=== PATIENT | female | born 1950 | race Caucasian/White ===

== ENCOUNTER 2021-03-21 16:06 | Outpatient (REF) | payer MEDICARE, OTHER, SELFPAY ==
[2021-03-23 15:22] LABS: COVID-19 RT-PCR UVMMC Result Negative (Negative)
== END 2021-03-21 16:07 | disposition home or self-care (01) ==
LOC: LBN 16:06
PROVIDERS: Visit Provider Physician Assistant Medical
DX: Z20.822 Contact with and (suspected) exposure to COVID-19 (principal); R50.9 Fever, unspecified
CPT/HCPCS: U0003; U0005

== ENCOUNTER 2024-06-21 13:01 | Inpatient (IN) | payer MEDICARE, BC, SELFPAY ==
[2024-06-21] VITALS (80 sets, daily range): BP systolic 104–171; BP diastolic 65–117; PULSE 70–139; RESP 10–26; TEMP 36.5–36.8; O2SAT 94–100
--- NOTE | 2024-06-21 13:00 | RT.EKG_ITS ---
APPROVED REPORT Exam: Resting ECG Reason for Exam: PALPITATIONS Patient Location: E HR:138 bpm ECG Measurements Heart Rate 138 AXIS MD 123 P 0 QRSd 77 QRS 27 QT 309 T 93 QTc 468 Conclusion Sinus tachycardia...rate> 99 Repolarization abnormality, prob rate related...ST dep, T neg, tachycardia ?aflutter
--- NOTE | 2024-06-21 13:30 | ED.GENADUL_ITS ---
Discharge Plan Disposition Patient Disposition: Admit to [facility] Condition: Stable Discharge Details Clinical Impression: Atrial fibrillation with RVR Primary Care Provider: Marleen,Local ED Provider: Del Jones Home Meds and New Rx's Prescriptions: No Action potassium citrate 10 mEq (1,080 mg) tablet extended release 10 meq PO BID ezetimibe 10 mg tablet 10 mg PO DAILY clopidogrel 75 mg tablet 75 mg PO DAILY lisinopril 5 mg tablet 5 mg PO DAILY chlorthalidone 25 mg tablet 25 mg PO DAILY rabeprazole 20 mg tablet,delayed release (DR/EC) 20 mg PO DAILY budesonide 3 mg capsule,delayed,extend.release 3 mg PO DAILY red yeast rice 600 mg tablet 600 mg PO BID Rx Instructions: give with meal/snack tumeric with chemo 2,400 mg PO BID calcium 167 mg capsule 167 mg PO DAILY multivitamin Tablet 1 tab PO DAILY aspirin 81 mg capsule 81 mg PO DAILY HPI General Date/Time Provider Initiated Documentation: 06/21/24 13:14 . Limitations to Documentation: no limitations . Information obtained by: patient . History of Present Illness 73 year old F presents to the emergency department with the chief complaint of elevated heart rate, described as moderate, Patient reports no radiation. Patient started experiencing this day(s) (2) and it has been intermittent. No relieving factors improve symptom(s), No exacerbating factors reported . Patient notes shortness of breath; denies chest pain, fever/chills and syncope. Patient did receive the following treatments prior to arrival, none Related Data Home Medications ?Medication ?Instructions ?Recorded ?Confirmed aspirin 81 mg capsule 81 mg PO DAILY 06/21/24 06/21/24 budesonide 3 mg 3 mg PO DAILY 06/21/24 06/21/24 capsule,delayed,extended release calcium 167 mg capsule 167 mg PO DAILY 06/21/24 06/21/24 chlorthalidone 25 mg tablet 25 mg PO DAILY 06/21/24 06/21/24 clopidogrel 75 mg tablet 75 mg PO DAILY 06/21/24 06/21/24 ezetimibe 10 mg tablet 10 mg PO DAILY 06/21/24 06/21/24 lisinopril 5 mg tablet 5 mg PO DAILY 06/21/24 06/21/24 multivitamin 1 tab PO DAILY 06/21/24 06/21/24 potassium citrate 10 mEq (1,080 10 meq PO BID 06/21/24 06/21/24 mg) tablet,extended release rabeprazole 20 mg tablet,delayed 20 mg PO DAILY 06/21/24 06/21/24 release red yeast rice 600 mg tablet 600 mg PO BID 06/21/24 06/21/24 tumeric with chemo 2,400 mg PO BID 06/21/24 06/21/24 Allergies Allergy/AdvReac Type Severity Reaction Status Date / Time levofloxacin (From Levaquin) Allergy Severe rash Verified 06/21/24 13:19 metoprolol (From Lopressor) Allergy Severe low pul Verified 06/21/24 13:19 rosuvastatin (From Crestor) Allergy Severe burn Verified 06/21/24 13:19 [id number] Reductase Allergy Severe red skin Verified 06/21/24 13:19 Inhibitor Sulfa (Sulfonamide Allergy Severe Unknown Verified 06/21/24 13:19 Antibiotics) General Stated Complaint: Arrhythmia KARI: 2 Review of Systems All systems reviewed & are unremarkable except as noted in HPI and below Constitutional Constitutional: Denies chills, Denies fever(s) and Denies weakness Cardiovascular Cardiovascular: Denies chest pain and Reports rapid heart rate Respiratory Respiratory: Denies cough Gastrointestinal Gastrointestinal: Denies abdominal pain, Denies nausea and Denies vomiting Musculoskeletal Musculoskeletal: Denies joint swelling Neurologic Neurologic: Denies weakness Psychiatric Psychiatric: Denies depression Exam Const General: no acute distress Orientation: alert HENMA Head: normal to inspection Ears: external ears normal General nose exam: external nose normal Mouth: moist mucous membranes Eyes General: appearance normal, both eyes and all related structures Neck Neck: normal visual inspection Resp Effort & Inspection: normal respiratory effort and able to speak in complete sentences Auscultation: clear to auscultation bilaterally Cardio Jugular venous pressure: no JVD Rate: tachycardic GI Palpation: soft and nontender Skin General skin exam: no rashes or lesions noted Neuro General: patient alert and patient oriented x3 Extrem General: normal to inspection Psych Mental Status: mental status grossly normal Course Vital Signs Vital signs: Vital Signs Temperature 36.5 C 06/21/24 13:10 Pulse 139 H 06/21/24 13:10 Respiratory Rate 20 06/21/24 13:10 Blood Pressure 148/101 H 06/21/24 13:10 Pulse Oximetry 98 06/21/24 13:10 Temperature 36.5 C 06/21/24 13:10 Temperature Source Oral 06/21/24 13:10 Pulse 139 H 06/21/24 13:10 Respiratory Rate 20 06/21/24 13:10 Respiratory Effort Non-Labored 06/21/24 13:12 Blood Pressure 148/101 H 06/21/24 13:10 Pulse Oximetry 98 06/21/24 13:10 Pain Level 0 06/21/24 13:10 Medical Decision Making 73-year-old female who is visiting here from [place] and has a history of coronary artery disease with 3 stents in the past, atrial fibrillation but normally is in it frequently per patient, who comes in with palpitations for 2 days with today has had persistently elevated heart rates. She denies any chest pain or pressure, she is notes that she has mild dyspnea with exertion but no vomiting, no fevers, no chills. She is noted to be tachycardic in the high 130s on arrival, she is clear lungs speaking in full sentences, mild pitting edema of the lower extremities no calf tenderness. Suspect that she is in a flutter with 2 1 conduction, will check a CBC, CMP, troponin, D-dimer and also administer IV diltiazem and keep on telemetry monitoring. Patient's heart rate in the 80s and 90s after IV Dilt, hemodynamically stable, says she feels much better. Will trial oral controlled release dose to see if this is able to control her heart rate. She is found to be in a flutter/fib, labs show magnesium of 1.2, IV repletion ordered. D-dimer 830 which is less than 1000 so per years protocol can be excluded from PE this way. She has a creainine of 1.5 with gfr 36 which she says she has stage 3 ckd so is [facility]. Will check delta troponins and if her heart rate remains stable will consider discharge. patient's hr again jumped up the 120's-130's, I ordered 10mg IV bolus and will initiate a drip. Will discuss with hospitalist about admission Differential Diagnosis Differential Diagnosis: A-fib/flutter, anemia, electrolyte abnormality, NSTEMI Lab Data Lab results reviewed: Yes I reviewed the patient's lab results. ECG Data Attestation: I personally reviewed and interpreted this ECG (s) as follows: Prior ECG tracings: available for review Interpretation: Suspect a flutter with 2 1 conduction, QTc 468, no STEMI aflutter rate of 94, qtc 475 no stemi Quality:SDOH Health Related Social Needs: No Data to Display Critical Care Time Critical Care Time Critical Care Time: Yes Total Critical Care Time: 45 (minutes) Attestation: time spent on frequent reassessments, hemodynamic monitoring, lab review in a patient with A-fib with RVR requiring IV diltiazem and potential to deteriorate at any time. PFSH All Active Problems (Updated 06/21/24 @ 15:48 by Del Jones MD) Atrial fibrillation with RVR (Acute) Social History Smoking/Tobacco Use Status: Never Smoking risk assessment performed?: Yes Alcohol Intake: never Substance use type: does not use Housing: house Do you feel safe at home: Yes Do you feel safe in your relationship?: Yes
[2024-06-21 13:45] LABS: BE (Venous) 0 mmol/L (-2-3); HCO3 (Venous) 25 mmol/L (23-28); O2 Sat (Venous) 58 %; TCO2 (Venous) 23 mmol/L (24-29); pCO2 (Venous) 43 mmHg (41-51); pH (Venous) 7.39 (7.31-7.41); pO2 (Venous) 31 mmHg
--- NOTE | 2024-06-21 13:46 | DI.RAD_ITS ---
Exam(s) XR PORTABLE CHEST AP EXAM: XR PORTABLE CHEST AP CLINICAL HISTORY: dyspnea TECHNIQUE: 2D digital imaging was performed. COMPARISON: No exams were available for comparison FINDINGS: LUNGS: Clear. No pleural abnormality seen. HEART: Normal size. AORTA: Normal diameter. BONES: Unremarkable for age. Soft tissues: Unremarkable. IMPRESSION: No acute findings. DATA REPOSITORY: RADIATION DOSE DELIVERED:
[2024-06-21] MEDS: Acetaminophen 500 MG TAB 1000 MG PO (13:55)
[2024-06-21] MEDS: dilTIAZem 25 MG/5 ML VIAL 20 MG IVP (13:55)
[2024-06-21] MEDS: Normal Saline 1,000 ML 1000 ML IV (13:58)
--- NOTE | 2024-06-21 14:00 | RT.EKG_ITS ---
APPROVED REPORT Exam: Resting ECG Reason for Exam: afib Patient Location: E HR:94 bpm ECG Measurements Heart Rate 94 AXIS [place] [id number] P [id number] QRSd 79 QRS 21 QT 378 T 59 QTc 475 Conclusion Atrial flutter with predominant 3:1 AV block...A-rate 283, multiple Ps Ventricular premature complex...V complex w/ short R-R interval
[2024-06-21 14:01] LABS: INR 1.1 (0.9-1.1); PTT Activated 27.4 sec (23.6-32.8)
[2024-06-21 14:17] LABS: D-Dimer 820 ng/mlFEU (<500)
[2024-06-21 14:26] LABS: ALT 31 U/L (14-59); AST 25 U/L (15-37); Alkaline Phosphatase 78 U/L (46-116); Anion Gap 10.8 mmol/L (3-11); BUN 35 mg/dL (7-18); Bilirubin, Total 0.78 mg/dL (0.2-1.0); CO2 26.2 mmol/L (21.0-32.0); CREATININE 1.5 mg/dL (0.55-1.02); Calcium 9.5 mg/dL (8.5-10.1); Chloride 99 mmol/L (98-107); Estimated GFR 36.57 (mL/min/1.73m2); Glucose 93 mg/dL (74-106); Magnesium 1.2 mg/dL (1.8-2.4); NT-proBNP 1868 pg/mL (<300); Potassium 3.8 mmol/L (3.5-5.1); Sodium 136 mmol/L (136-145); TSH (W/Ref FT4) 0.87 uIU/mL (0.36-3.74); Total Protein 8.3 g/dL (6.4-8.2); Troponin I 26 ng/L (<or=51)
[2024-06-21] MEDS: MAGNESIUM SULFATE 2 GM/50 ML BAG IVINF ×2 (15:10→19:56)
[2024-06-21] MEDS: dilTIAZem CD 180 MG CAPCR PO (15:19)
[2024-06-21 15:22] LABS: Troponin I 25 ng/L (<or=51)
[2024-06-21] MEDS: dilTIAZem 25 MG/5 ML VIAL 10 MG IVP (15:34)
[2024-06-21] MEDS: dilTIAZem 125 MG in Normal Saline 100 ML IV (16:31)
[2024-06-21 16:46] LABS: Troponin I 27 ng/L (<or=51)
--- NOTE | 2024-06-21 17:06 | W.PC.ACHO ---
Registration Status: Primary Language: Preferred Language: ED Information & Data Chief Complaint Arrhythmia 06/21/24 13:33 Triage Note pt arrives c/o palpitations 06/21/24 13:10 and an elevated heart rate via her fit bit intermittently since Friday. Pt denies shortness of breath and nausea. Pt does have a history of Afib since 2017 with an ablation Most Recent Vital Signs Temperature 36.5 C 06/21/24 13:10 Temperature Source Oral 06/21/24 13:10 Pulse 124 H 06/21/24 16:16 Pulse 138 H 06/21/24 16:35 Respiratory Rate 14 06/21/24 16:20 Respiratory Effort Non-Labored 06/21/24 13:12 Blood Pressure 151/100 H 06/21/24 16:16 Blood Pressure Mean 118 06/21/24 16:16 Pulse Oximetry 99 06/21/24 16:20 Pain Level 4 06/21/24 13:55 Allergies levofloxacin (From Levaquin) Allergy (Severe, Verified 06/21/24 13:19) rash metoprolol (From Lopressor) Allergy (Severe, Verified 06/21/24 13:19) low pul low pulse and low bp rosuvastatin (From Crestor) Allergy (Severe, Verified 06/21/24 13:19) burn skin burn [id number] Reductase Inhibitor Allergy (Severe, Verified 06/21/24 13:19) red skin Sulfa (Sulfonamide Antibiotics) Allergy (Severe, Verified 06/21/24 13:19) Unknown Precautions Isolation Standard precaution 06/21/24 13:12 Active Medications Generic Name Dose Route Start Last Admin Trade Name Brady PRN Reason Stop Dose Admin Diltiazem HCl 125 mg/ Sodium 125 mls @ 5 mls/hr 06/21/24 16:00 06/21/24 16:31 Chloride IV 5 mg/hr INFUSION BARTOLO 5 mls/hr Administration Protocol 5 MG/HR IV IV Catheter Type [Right Wrist] Saline Lock IV Catheter Gauge [Right Wrist 20 ] Diet Orders Category Date Time Status Heart Healthy Eating [DIET] Nutrition 06/21/24 Dinner Active Diagnostics 06/21/24 06/21/24 06/21/24 Range/Units 16:15 14:40 13:37 PT 11.0 (9.1-11.1) sec INR 1.1 (0.9-1.1) APTT 27.4 (23.6-32.8) sec D-Dimer 820 H (<500) ng/mlFEU VBG pH 7.39 (7.31-7.41) VBG pCO2 43 (41-51) mmHg VBG pO2 31 mmHg VBG HCO3 25 (23-28) mmol/L VBG Total CO2 23 L (24-29) mmol/L VBG O2 Saturation 58 % VBG Base Excess 0 (-2-3) mmol/L Sodium 136 (136-145) mmol/L Potassium 3.8 (3.5-5.1) mmol/L Chloride 99 (98-107) mmol/L Carbon Dioxide 26.2 (21.0-32.0) mmol/L Anion Gap 10.8 (3-11) mmol/L BUN 35 H (7-18) mg/dL Creatinine 1.5 H (0.55-1.02) mg/dL Est GFR (CKD-EPI 2020) 36.57 (mL/min/1.73m2) Glucose 93 (74-106) mg/dL Calcium 9.5 (8.5-10.1) mg/dL Magnesium 1.2 L (1.8-2.4) mg/dL Total Bilirubin 0.78 (0.2-1.0) mg/dL AST 25 (15-37) U/L ALT 31 (14-59) U/L Alkaline Phosphatase 78 (46-116) U/L Troponin I 27 25 26 (<or=51) ng/L NT-Pro-B Natriuret Pep 1868 H (<300) pg/mL Total Protein 8.3 H (6.4-8.2) g/dL Albumin 4.0 (3.4-5.0) g/dL TSH 0.87 06/21/ Range/Units 13:30 PT (9.1-11.1) sec INR (0.9-1.1) APTT (23.6-32.8) sec D-Dimer (<500) ng/mlFEU VBG pH (7.31-7.41) VBG pCO2 (41-51) mmHg VBG pO2 mmHg VBG HCO3 (23-28) mmol/L VBG Total CO2 (24-29) mmol/L VBG O2 Saturation % VBG Base Excess (-2-3) mmol/L Sodium (136-145) mmol/L Potassium (3.5-5.1) mmol/L Chloride (98-107) mmol/L Carbon Dioxide (21.0-32.0) mmol/L Anion Gap (3-11) mmol/L BUN (7-18) mg/dL Creatinine (0.55-1.02) mg/dL Est GFR (CKD-EPI 2020) (mL/min/1.73m2) Glucose (74-106) mg/dL Calcium (8.5-10.1) mg/dL Magnesium (1.8-2.4) mg/dL Total Bilirubin (0.2-1.0) mg/dL AST (15-37) U/L ALT (14-59) U/L Alkaline Phosphatase (46-116) U/L Troponin I (<or=51) ng/L NT-Pro-B Natriuret Pep (<300) pg/mL Total Protein (6.4-8.2) g/dL Albumin (3.4-5.0) g/dL TSH Cancelled Intake and Output - 24 Hour Total 06/21/24 13:01 thru 06/21/24 16:59 Intake Total 1050 Balance 1050 Weight 95.254 kg Intake: IV 1050 Falls Risk Assessment History of Falls No History 06/21/24 13:12 Contributing Factors No Factors,Medications 06/21/24 13:12 Ambulatory Aids Independent 06/21/24 13:12 Tubes/Lines None 06/21/24 13:12 Gait Evaluation No gait disturbance 06/21/24 13:12 Cognition No cognitive impairment 06/21/24 13:12 Fall Total Score 3 06/21/24 13:12 Level of Risk Standard/Low Risk 06/21/24 13:12 v v v v v v v v v Sending and/or Receiving Nurses: Please use comment section below to note any information pertinent to the patient hand-off not included above. Information / Comments: Report received from: Milena
--- NOTE | 2024-06-21 17:37 | W.PM.HP.N ---
Date of service: 06/21/24 Time of Service: 17:37 Assessment and Plan Assessment and plan (1) Atrial fibrillation with RVR: Status: Acute Assessment and plan: Atrial fibrillation vs flutter. She is on diltiazem drip and is stable, monitoring in the ICU Unclear trigger. No ACS, TSH okay. Mg could have contributed. PE unlikely per Luca. D-dimer borderline depending on which risk calculator is used, no CTA indicated per ED clinician. Since we are anticoagulating anyways I feel comfortable with this. I'd like to try to transition her to oral beta lio therapy, which is preferred to CCB with her CAD, also lower bleeding risk in combination with DOAC. She had a dramatic response to metoprolol in the past, so we could try very dose carvedilol under monitoring. Her [id number] score is 3. I recommended apixaban along with rate control. Plan to control rate, discharge to follow up with cardiology at home to discuss rhythm control options (2) Coronary artery disease: Status: Chronic Assessment and plan: Statin intolerant, on red yeast rice and ezetimibe as well as DAPT. She is well over a year out, with DOAC will stop one platelet agent. There is evidence clopidogrel/apixaban combination is lower risk than ASA/apixaban, so will go with this. (3) CKD stage 3b, GFR 30-44 ml/min: Assessment and plan: this is baseline per patient. Follow. (4) Hypomagnesemia: Status: Acute Assessment and plan: Given 2 grams, will give 2 more and follow in am. (5) Discharge planning issues: Status: Acute Assessment and plan: Home when on oral medications with reasonable rate control. she is full code. History of Present Illness History of Present Illness Chief Complaint: elevated heart rate Narrative: 73 yo F with history of CAD s/p PCI/AWA x 3 most recently in 2019 and pAFIB who presented after noting her heart rate was increasining elevated on her fitbit monitor over the past 2 days. She is visiting her daughter and grandchildren from [facility] and yesterday noted her heart rate was persistently in the 120s. It seemed to be going up and up, to the 160s. She has felt a little tired but she also has been chasing her grandkids. She has not had any chest pain or dizziness or significant palpitations like she has had in the past. She called her airplane mechanic apprentice and they told her to go to the ED. She hasn't had any changes to her health lately, no recently colds or other infections or significant stressors. She does not drink alcohol and last had caffeine in the form of tea several days ago. Her grandkids have had colds and she has been taking vitamin C/zinc/elderberry for the past few days to boost her immune system. Her last stent was in 2019, and her first LA was in 2003. She had an ablation for her atrial fibrillation in 2017. Review of Systems All systems reviewed & are unremarkable except as noted in HPI and below Gastrointestinal Gastrointestinal: Denies melena and Denies hematochezia Comments: no h/o GI bleed Musculoskeletal Musculoskeletal: Reports numbness (mild chronic left leg) Neurologic Neurologic: Reports localized weakness (mild chronic left leg) and Reports numbness (mild chronic left leg) PFSH All Active Problems (Updated 06/21/24 @ 18:45 by Jagdish Shirley) Hypomagnesemia (Acute) Discharge planning issues (Acute) Coronary artery disease (Chronic) Atrial fibrillation with RVR (Acute) Medical History (Updated 06/21/24 @ 18:45 by Jagdish Shirley) CKD stage 3b, GFR 30-44 ml/min Paroxysmal atrial fibrillation Surgical History (Updated 06/21/24 @ 18:11 by Jagdish Shirley) S/P ablation of atrial fibrillation S/P spinal surgery cyst removal with residual mild left leg weakness/numbness Hx of heart artery stent x 3, last in 2019 Family History (Updated 06/21/24 @ 18:12 by Jagdish Shirley) Father Heart disease Brother Heart disease 3 brothers with CABG Social History (Updated 06/21/24 @ 18:13 by Jagdish Shirley) Smoking/Tobacco Use Status: Never Smoking risk assessment performed?: Yes Alcohol Intake: never Substance use type: does not use Housing: house Do you feel safe at home: Yes Do you feel safe in your relationship?: Yes Additional Social history: Lives in [place] with John. Visits daughter and CHRIS in [place], she teaches at [employer] Meds Allergies and Home Medications Allergies Allergy/AdvReac Type Severity Reaction Status Date / Time levofloxacin (From Levaquin) Allergy Severe rash Verified 06/21/24 13:19 metoprolol (From Lopressor) Allergy Severe low pul Verified 06/21/24 13:19 rosuvastatin (From Crestor) Allergy Severe burn Verified 06/21/24 13:19 [id number] Reductase Allergy Severe red skin Verified 06/21/24 13:19 Inhibitor Sulfa (Sulfonamide Allergy Severe Unknown Verified 06/21/24 13:19 Antibiotics) Home Medications ?Medication ?Instructions ?Recorded ?Confirmed ?Type aspirin 81 mg capsule 81 mg PO DAILY 06/21/24 06/21/24 History budesonide 3 mg 3 mg PO DAILY 06/21/24 06/21/24 History capsule,delayed,extended release calcium 167 mg capsule 167 mg PO DAILY 06/21/24 06/21/24 History chlorthalidone 25 mg tablet 25 mg PO DAILY 06/21/24 06/21/24 History clopidogrel 75 mg tablet 75 mg PO DAILY 06/21/24 06/21/24 History ezetimibe 10 mg tablet 10 mg PO DAILY 06/21/24 06/21/24 History lisinopril 5 mg tablet 5 mg PO DAILY 06/21/24 06/21/24 History magnesium sulfate 100 mg capsule 400 mg PO HS 06/21/24 06/21/24 History multivitamin 1 tab PO DAILY 06/21/24 06/21/24 History potassium citrate 10 mEq (1,080 10 meq PO BID 06/21/24 06/21/24 History mg) tablet,extended release rabeprazole 20 mg tablet,delayed 20 mg PO DAILY 06/21/24 06/21/24 History release red yeast rice 600 mg tablet 600 mg PO BID 06/21/24 06/21/24 History tumeric with chemo 2,400 mg PO BID 06/21/24 06/21/24 History Exam Narrative Exam Narrative: GEN: Alert and oriented x 4, pleasant and cooperative, gives linear history. No acute distress at rest. HEENT: Head atraumatic. Conjunctiva clear, no icterus. PEERL, EOMI. no rhinorrhea. MMM, OP benign. Neck is supple with no masses or lymphadenopathy, trachea midline, normal thyroid. LUNGS: CTAB with normal effort CV: RRR with no murmurs, gallops, or rubs. ABD: active bowel sounds, soft, nontender and nondistended. No masses. EXT: no cyanosis, clubbing, or edema MSK: No joint redness or swelling NEURO: CN 2-12 grossly intact. Gait stable. Normal movement of 4 extremities. Normal speech and coordination. No tremor SKIN: No rashes or open wounds. PSYCH: normal mood and affect, normal thought process Results Imaging Chest x-ray: report reviewed (No acute findings. ) and image reviewed EKG: report reviewed (atrial fibrillation vs flutter, rate 94, PVC) and image reviewed Labs 06/21/24 13:37 Labs: Laboratory Results - last 24 hr 06/21/24 06/21/24 06/21/24 13:30 13:37 14:40 PT 11.0 INR 1.1 APTT 27.4 D-Dimer 820 H VBG pH 7.39 VBG pCO2 43 VBG pO2 31 VBG HCO3 25 VBG Total CO2 23 L VBG O2 Saturation 58 VBG Base Excess 0 Sodium 136 Potassium 3.8 Chloride 99 Carbon Dioxide 26.2 Anion Gap 10.8 BUN 35 H Creatinine 1.5 H Est GFR (CKD-EPI 2020) 36.57 Glucose 93 Calcium 9.5 Magnesium 1.2 L Total Bilirubin 0.78 AST 25 ALT 31 Alkaline Phosphatase 78 Troponin I 26 25 NT-Pro-B Natriuret Pep 1868 H Total Protein 8.3 H Albumin 4.0 TSH Cancelled 0.87 06/21/24 16:15 PT INR APTT D-Dimer VBG pH VBG pCO2 VBG pO2 VBG HCO3 VBG Total CO2 VBG O2 Saturation VBG Base Excess Sodium Potassium Chloride Carbon Dioxide Anion Gap BUN Creatinine Est GFR (CKD-EPI 2020) Glucose Calcium Magnesium Total Bilirubin AST ALT Alkaline Phosphatase Troponin I 27 NT-Pro-B Natriuret Pep Total Protein Albumin TSH Last Vital Signs Temp 36.5 C 06/21/24 13:10 Pulse 101 H 06/21/24 17:01 Resp 24 06/21/24 17:01 BP 154/74 H 06/21/24 17:01 Pulse Ox 98 06/21/24 17:01 Time Spent Time spent with Patient: >75 minutes Time was spent: preparing to see the patient(eg.review tests), obtaining and/or reviewing separately otained hiistory, ordering medications,tests, procedures, referring, communicating with other health medical care administrator, indepentently interpreting results, counseling the patient and care coordination
[2024-06-21] MEDS: Potassium Citrate 1080 MG TABCR PO (19:55)
[2024-06-21] MEDS: Clopidogrel 75 MG TAB PO (19:58)
[2024-06-22] VITALS (32 sets, daily range): BP systolic 104–129; BP diastolic 50–90; PULSE 63–111; RESP 11–23; TEMP 36.7–37.4; O2SAT 98
[2024-06-22 06:18] LABS: Anion Gap 8.7 mmol/L (3-11); BUN 28 mg/dL (7-18); CO2 25.3 mmol/L (21.0-32.0); CREATININE 1.3 mg/dL (0.55-1.02); Calcium 9.1 mg/dL (8.5-10.1); Chloride 104 mmol/L (98-107); Estimated GFR 43.42 (mL/min/1.73m2); Glucose 89 mg/dL (74-106); Magnesium 1.8 mg/dL (1.8-2.4); Potassium 3.6 mmol/L (3.5-5.1); Sodium 138 mmol/L (136-145)
--- NOTE | 2024-06-22 08:45 | INITIAL_ITS ---
Date of service: 06/22/24 Time of Service: 08:45 Care Management Initial Assmt Initial Assessment Reason for Hospitalization: Afib with RVR Functional Status/Living Situation Patient Presentation: Bharti was sitting up in her chair when CM met with her. She discussed how she and her , who was at the bedside, are in [place] visiting their daughter, Jessa, and four of their grandchildren, for one of their grandchildren's birthday alliance party. She stated that they have four children, and six grandchildren in total, two of which live in [place]. She stated that she contacted her director general, Dr. Km Warren ([place], [place], phone #[phone]; fax #[phone]), because her fit bit watch showed that she was in an abnormal rythym, although she reported that she was asymptomatic. She stated that Dr. Warren would like her records to be sent for continuity of care; CM faxed the ED note and H&P, and will fax the discharge summary once she is discharged. Bharti is independent at baseline, and will discharge home with no services once she is medically ready. CM will continue to follow. Town of Residence: [place], [place] Resides with: Spouse Significant Other/Family: Local Natural Supports: Lives with her , John, in [place], [place]. She has four children (two sons and two daughters); daughter, Jessa, lives in [facility]. She has six grandchildren; four live in [facility] [place], and two live in [place]. Employment Status: Retired Instrumental Activities of Daily Living (ADLs): Independent Medications Medication Management: No Issues/Barriers identified Advance Directives Advance Directives: Do you have an Advance Directive: Y 06/21/24 13:12 AD On File at [facility]: N 06/21/24 13:12 Date Asked 06/21/24 06/21/24 13:12 AD Date Reviewed COLST On File at [facility] COLST Date Scanned Code Status Resuscitation Status Full Code Insurance Coverage/Financial Issues Insurance: [employer] MCR replacement Care Team Visit Care Team Role Provider Type Local No Primary Care Provider [facility] STAFF PHYSICIAN Del Jones MD Emergency Provider [facility] STAFF PHYSICIAN Jagdish Shirley Admit Provider [facility] STAFF PHYSICIAN Attending Provider Other: Dr. Km Warren, director general at [facility] in [place]. ; . Discharge Potential Discharge Needs: PCP F/U Appt Anticipated Barriers to Discharge: None Identified Patient/Family Education Needs: Review discharge instructions, discuss Ask Me Three Transportation: Private vehicle Plan: Anticipate Bharti will return home with no new services. She will transport via private vehicle by family, and will follow up with her local PCP, and her discharge plan of care. CM will continue to follow. PFSH All Active Problems (Updated 06/22/24 @ 12:07 by Corona Kohler DO) Chronic anticoagulation (Acute) History of stent insertion of renal artery (Acute) Peripheral vascular disease (Chronic) Atrial flutter by electrocardiogram (Acute) Hypomagnesemia (Acute) Discharge planning issues (Acute) Coronary artery disease (Chronic) Atrial fibrillation with RVR (Acute) Medical History (Updated 06/22/24 @ 12:07 by Corona Kohler DO) CKD stage 3b, GFR 30-44 ml/min Paroxysmal atrial fibrillation Surgical History (Updated 06/21/24 @ 18:11 by Jagdish Shirley) S/P ablation of atrial fibrillation S/P spinal surgery cyst removal with residual mild left leg weakness/numbness Hx of heart artery stent x 3, last in 2019 Family History (Updated 06/21/24 @ 18:12 by Jagdish Shirley) Father Heart disease Brother Heart disease 3 brothers with CABG Social History (Updated 06/21/24 @ 18:13 by Jagdish Shirley) Smoking/Tobacco Use Status: Never Smoking risk assessment performed?: Yes Alcohol Intake: never Substance use type: does not use Housing: house Do you feel safe at home: Yes Do you feel safe in your relationship?: Yes Additional Social history: Lives in [place] with John. Visits daughter and CHRIS in [place], she teaches at [employer] SDOH(Care Management) Screening Will the Patient Participate in the Screening?: Declined to provide Social Determinants of Health Comments(SDOH Details): not vt resident
[2024-06-22] MEDS: Multivitamin TAB 1 TAB PO (08:48)
[2024-06-22] MEDS: Potassium Citrate 1080 MG TABCR 2160 MG PO ×2 (08:49→19:54)
[2024-06-22] MEDS: Chlorthalidone 25 MG TAB PO (08:49)
[2024-06-22] MEDS: Lisinopril 5 MG TAB PO (08:49)
[2024-06-22] MEDS: Apixaban 5 MG TAB PO (08:50)
[2024-06-22] MEDS: Normal Saline Flush 10 ML SYR IVP ×2 (08:53→19:57)
--- NOTE | 2024-06-22 12:00 | PGE_ITS ---
Date of Service Date of service: 06/22/24 Time of Service: 08:15 Assessment and Plan Assessment and plan (1) Atrial flutter by electrocardiogram: Start date: 06/21/24 Status: Acute Assessment and plan: Patient with history of A-fib. EKG clearly shows atrial flutter at 3-1 and 2-1 currently while on diltiazem drip. Will check TSH, free T4 and free T3 at this time to rule out a thyroid origin. Patient never had any palpitations. This was discovered by her Fitbit watch. She is encouraged to keep using it. Patient's hospital course is discussed with her primary cardiology service in [facility] as outlined in HPI. Will start the patient on oral diltiazem extended release and soon thereafter wean the diltiazem drip. If the patient is stable tomorrow with a stable heart rate, we will consider discharging her at that time on oral diltiazem. This plan is discussed with the patient. She verbalizes by teach back. She has no complaints with her care at this point. TSH measured at 0.49, FT4 normal at 1.22. Free T3 requested as a send out. Likelihood of thyroid as a contributing issue to the SVT flutter is very low. (2) Peripheral vascular disease: Status: Chronic Assessment and plan: Patient is s/p renal artery stent placed in November 2023. Discussed plan with [place] cardiology which was to continue Plavix plus aspirin. This therapy is discussed with patient's cardiology service, nurse practitioner for Dr. Dennison who is out of town at this time and not available. Will change the Eliquis/Plavix back to Plavix plus aspirin as recommended by cardiology and start the patient on oral diltiazem at this time with plans to follow-up upon her return to [place] with her primary soil fertility specialist. Oral diltiazem ordered and will wean IV diltiazem drip when possible. (3) History of stent insertion of renal artery: Status: Acute Assessment and plan: Continue Plavix and aspirin as noted above. Stop Eliquis Will restart Plavix and aspirin tomorrow morning since patient received Eliquis dosing x 2, 1 dose already today. Discussed with pharmacy regarding schedule of meds. (4) Chronic anticoagulation: Status: Acute Assessment and plan: Continue anticoagulation as outlined above with Plavix and aspirin as recommended by the patient's primary soil fertility specialist (5) Hx of heart artery stent: Assessment and plan: Distant history of coronary artery stent. Recent renal artery stent in November 2019 for (6) CKD stage 3b, GFR 30-44 ml/min: Assessment and plan: Continue to monitor renal function while the patient remains hospitalized (7) S/P spinal surgery: Assessment and plan: Not an active issue at this time. (8) S/P ablation of atrial fibrillation: Assessment and plan: Following up with her primary soil fertility specialist upon return to [place] Subjective Subjective Patient reports: no new complaints Interval history since last seen: Clinical course reviewed including notes, orders, labs, vitals, meds, imaging, rhythm strips are reviewed. Care is discussed with ICU staff on rounds. Patient denies chills fever nausea vomiting or diarrhea. No skin rash. No bleeding of any kind. No palpitations. No diaphoresis. Patient asked when she might be able to go home. We explained that we will be calling her soil fertility specialist in [place] today, Dr. Dennison who works at the [facility] office phone number [phone]. Once we change the patient over to oral medication and her heart rate is stable, the patient could possibly be discharged at that time. This plan is discussed with her and an opportunity to ask questions was made. A 14 point Review of systems is conducted and negative except as noted above in HPI. Exam Narrative Exam Narrative: Patient is alert and oriented x 3 and in no acute distress. Seen in the intensive care unit. Sitting up in bedside chair. Alert and very comfortable. Diltiazem drip continues. HEENT: Neck supple, Conjunctiva non-injected, sclera non-icteric, Pupils equal and reactive to light symmetrically, no JVD, no A waves. No thyromegaly. No carotid bruit CHEST: Bilaterally symmetrical with inspiration and expiration. No use of accessory muscles of respiration. No nasal flaring. LUNGS: Clear to auscultation bilaterally, no rales, rhonchi or wheeze, no pleural friction rub, no post-tussive crackles COR: RRR without murmur, normal S1, S2, no rub or jeffrey ABDOMEN: Soft, non tender diffusely, normally active bowel sounds diffusely, No hepatosplenomegaly, No abdominal bruit, no masses, no tenderness on deep abdominal palpation. G/U: deferred Rectal: deferred MUSCULOSKELETAL: Bilaterally symmetrical, no muscle belly tenderness or mass DERMIS: Skin warm and dry, no ulcers or rashes, EXTREMITIES: No cyanosis, clubbing or edema, no gross deformities of the large or small joints of the upper or lower extremities. NEUROLOGICAL: Cranial nerves intact II-XII without notable deficit, No peripheral neurosensory or motor deficits noted. LYMPH: No anterior or posterior cervical, no supraclavicular, No axillary, no epitrochlear or femoral lymphadenopathy. Objective Last Vital Signs Temp 37.4 C 06/22/24 03:00 Pulse 73 06/22/24 10:01 Resp 21 06/22/24 10:01 BP 127/68 06/22/24 10:01 Pulse Ox 94 06/21/24 22:00 Laboratory Results - last 24 hr 06/21/24 06/21/24 06/21/24 13:30 13:37 14:40 PT 11.0 INR 1.1 APTT 27.4 D-Dimer 820 H VBG pH 7.39 VBG pCO2 43 VBG pO2 31 VBG HCO3 25 VBG Total CO2 23 L VBG O2 Saturation 58 VBG Base Excess 0 Sodium 136 Potassium 3.8 Chloride 99 Carbon Dioxide 26.2 Anion Gap 10.8 BUN 35 H Creatinine 1.5 H Est GFR (CKD-EPI 2020) 36.57 Glucose 93 Calcium 9.5 Magnesium 1.2 L Total Bilirubin 0.78 AST 25 ALT 31 Alkaline Phosphatase 78 Troponin I 26 25 NT-Pro-B Natriuret Pep 1868 H Total Protein 8.3 H Albumin 4.0 TSH Cancelled 0.87 06/21/24 06/22/24 16:15 05:20 PT INR APTT D-Dimer VBG pH VBG pCO2 VBG pO2 VBG HCO3 VBG Total CO2 VBG O2 Saturation VBG Base Excess Sodium 138 Potassium 3.6 Chloride 104 Carbon Dioxide 25.3 Anion Gap 8.7 BUN 28 H Creatinine 1.3 H Est GFR (CKD-EPI 2020) 43.42 Glucose 89 Calcium 9.1 Magnesium 1.8 Total Bilirubin AST ALT Alkaline Phosphatase Troponin I 27 NT-Pro-B Natriuret Pep Total Protein Albumin TSH Time Spent with Patient Time Spent with Patient: 35-49 minutes Time was spent: preparing to see the patient(eg.review tests), obtaining and/or reviewing separately otained hiistory, ordering medications,tests, procedures, referring, communicating with other health md do resident urgent care, indepentently interpreting results, counseling the patient, care coordination and other (call to discuss with [place] [employer] )
[2024-06-22 13:12] LABS: FREE T4 1.22 ng/dL (0.76-1.46); TSH 0.49 uIU/Ml (0.36-3.74)
--- NOTE | 2024-06-22 14:19 | CHAPLAIN ---
Bharti was sitting up in the chair when I visited. Her was with her. They are from [place] and are visiting their daughter Maryjane. Bharti thinks she'll be discharged today or more likely tomorrow. 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 She explained that after prayer, God encouraged her to start the Bible study, and then God gave her a vision of the person she should ask to assist her. 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 Bharti was very pleasant and easily engaged in conversation.
[2024-06-22] MEDS: dilTIAZem CD 120 MG CAPCR PO (14:37)
[2024-06-22] MEDS: Ezetimibe 10 MG TAB PO (19:56)
--- NOTE | 2024-06-22 20:45 | RT.EKG_ITS ---
APPROVED REPORT Exam: Resting ECG Reason for Exam: rhythm change Patient Location: I HR:69 bpm ECG Measurements Heart Rate 69 AXIS WI 116 P 88 QRSd 83 QRS 2 QT 414 T 46 QTc 444 Conclusion Sinus rhythm...normal P axis, V-rate 50- 99 Borderline short WI interval...WI int <120mS RSR' in V1 or V2, probably normal variant...small R' only Minimal ST elevation, anterior leads...ST >0.10mV, V1-V4
[2024-06-22 22:33] LABS: T3,Free 3.7 pg/mL (2.8-5.3)
[2024-06-23] VITALS (14 sets, daily range): BP systolic 100–150; BP diastolic 60–105; PULSE 65–122; RESP 15–29; TEMP 36.4–36.6; O2SAT 97–98
--- NOTE | 2024-06-23 07:33 | W.PM.PROGNOT ---
Date of Service Date of service: 06/23/24 Time of Service: 07:33 Assessment and Plan Assessment and plan (1) Atrial flutter by electrocardiogram: Start date: 06/21/24 Status: Acute Assessment and plan: Patient with history of A-fib. EKG clearly shows atrial flutter at 3-1 and 2-1 currently while on diltiazem drip. Will check TSH, free T4 and free T3 at this time to rule out a thyroid origin. Patient never had any palpitations. This was discovered by her Fitbit watch. She is encouraged to keep using it. Patient's hospital course is discussed with her primary cardiology service in [facility] as outlined in HPI. Will start the patient on oral diltiazem extended release and soon thereafter wean the diltiazem drip. If the patient is stable tomorrow with a stable heart rate, we will consider discharging her at that time on oral diltiazem. This plan is discussed with the patient. She verbalizes by teach back. She has no complaints with her care at this point. TSH measured at 0.49, FT4 normal at 1.22. Free T3 requested as a send out. Likelihood of thyroid as a contributing issue to the SVT flutter is very low. (2) Peripheral vascular disease: Status: Chronic Assessment and plan: Patient is s/p renal artery stent placed in November 2023. Discussed plan with [place] cardiology which was to continue Plavix plus aspirin. This therapy is discussed with patient's cardiology service, nurse practitioner for Dr. Dennison who is out of town at this time and not available. Will change the Eliquis/Plavix back to Plavix plus aspirin as recommended by cardiology and start the patient on oral diltiazem at this time with plans to follow-up upon her return to [place] with her primary dough machine operator. Oral diltiazem ordered and will wean IV diltiazem drip when possible. (3) History of stent insertion of renal artery: Status: Acute Assessment and plan: Continue Plavix and aspirin as noted above. Stop Eliquis Will restart Plavix and aspirin tomorrow morning since patient received Eliquis dosing x 2, 1 dose already today. Discussed with pharmacy regarding schedule of meds. (4) Chronic anticoagulation: Status: Acute Assessment and plan: Continue anticoagulation as outlined above with Plavix and aspirin as recommended by the patient's primary dough machine operator (5) Hx of heart artery stent: Assessment and plan: Distant history of coronary artery stent. Recent renal artery stent in November 2019 for (6) CKD stage 3b, GFR 30-44 ml/min: Assessment and plan: Continue to monitor renal function while the patient remains hospitalized (7) S/P spinal surgery: Assessment and plan: Not an active issue at this time. (8) S/P ablation of atrial fibrillation: Assessment and plan: Following up with her primary dough machine operator upon return to [place] Subjective Subjective Patient reports: no new complaints Interval history since last seen: Clinical course reviewed including notes, orders, labs, vitals, meds, imaging, rhythm strips are reviewed. Care is discussed with ICU staff on rounds. EKG last pm showed normal sinus rhythm with controlled rate. No new complaints. Patient started oral diltiazem extended release yesterday. Diltiazem drip weaned off. Jun 22, 2024: Patient denies chills fever nausea vomiting or diarrhea. No skin rash. No bleeding of any kind. No palpitations. No diaphoresis. Patient asked when she might be able to go home. We explained that we will be calling her dough machine operator in [place] today, Dr. Dennison who works at the [facility] office phone number [phone]. Once we change the patient over to oral medication and her heart rate is stable, the patient could possibly be discharged at that time. This plan is discussed with her and an opportunity to ask questions was made. A 14 point Review of systems is conducted and negative except as noted above in HPI. Exam Narrative Exam Narrative: Patient is alert and oriented x 3 and in no acute distress. Seen in the intensive care unit. Sitting up in bedside chair. Alert and very comfortable. Diltiazem drip continues. HEENT: Neck supple, Conjunctiva non-injected, sclera non-icteric, Pupils equal and reactive to light symmetrically, no JVD, no A waves. No thyromegaly. No carotid bruit CHEST: Bilaterally symmetrical with inspiration and expiration. No use of accessory muscles of respiration. No nasal flaring. LUNGS: Clear to auscultation bilaterally, no rales, rhonchi or wheeze, no pleural friction rub, no post-tussive crackles COR: RRR without murmur, normal S1, S2, no rub or jeffrey ABDOMEN: Soft, non tender diffusely, normally active bowel sounds diffusely, No hepatosplenomegaly, No abdominal bruit, no masses, no tenderness on deep abdominal palpation. G/U: deferred Rectal: deferred MUSCULOSKELETAL: Bilaterally symmetrical, no muscle belly tenderness or mass DERMIS: Skin warm and dry, no ulcers or rashes, EXTREMITIES: No cyanosis, clubbing or edema, no gross deformities of the large or small joints of the upper or lower extremities. NEUROLOGICAL: Cranial nerves intact II-XII without notable deficit, No peripheral neurosensory or motor deficits noted. LYMPH: No anterior or posterior cervical, no supraclavicular, No axillary, no epitrochlear or femoral lymphadenopathy. Objective Last Vital Signs Temp 36.6 C 06/23/24 02:01 Pulse 68 06/23/24 02:01 Resp 15 06/23/24 02:01 BP 116/62 06/23/24 02:01 Pulse Ox 98 06/22/24 16:00 Laboratory Results - last 24 hr 06/22/24 06/22/24 12:38 12:38 TSH Cancelled 0.49 Free T4 1.22
[2024-06-23] MEDS: Potassium Citrate 1080 MG TABCR 2160 MG PO (08:37)
[2024-06-23] MEDS: Lisinopril 5 MG TAB PO (08:38)
[2024-06-23] MEDS: Clopidogrel 75 MG TAB PO (08:38)
[2024-06-23] MEDS: dilTIAZem CD 120 MG CAPCR PO (08:38)
[2024-06-23] MEDS: Chlorthalidone 25 MG TAB PO (08:38)
[2024-06-23] MEDS: Aspirin E.C. 81 MG TABEC PO (08:39)
[2024-06-23] MEDS: Normal Saline Flush 10 ML SYR IVP (08:39)
[2024-06-23] MEDS: Multivitamin TAB 1 TAB PO (08:39)
--- NOTE | 2024-06-23 10:23 | NUR.NOTE ---
Nursing Note: In patient chart for educational purposes/quality training for orientation.
[2024-06-23 10:33] LABS: Abs Immature Grans 0.03 10^3/uL (0.0-0.06); Absolute Basophil Count 0.04 10^3/uL (0.0-0.2); Absolute Eosinophil Count 0.22 10^3/uL (0.0-0.7); Absolute Lymphocyte Count 1.91 10^3/uL (1.2-3.4); Absolute Monocyte Count 0.63 10^3/uL (0.1-0.8); Absolute Neutrophil Count 6.12 10^3/uL (1.2-6.7); Basophils % 0.4 %; Eosinophils % 2.5 %; HCT 44.4 % (36.0-46.0); HGB 14.5 g/dL (11.2-15.7); Immature Grans % 0.3 %; Lymphocytes % 21.3 %; MCH 27.4 pg (27.0-33.0); MCHC 32.7 % (32.0-36.0); MCV 84 fL (80-95); MPV 9.8 fL (8.0-11.0); Neutrophils % 68.5 %; Platelet Count 247 10^3/uL (130-400); RDW 14.2 % (11.7-14.6); RDW-SD 43.6 fL; WBC 8.95 10^3/uL (4.4-10.8)
[2024-06-23 10:49] LABS: ALT 27 U/L (14-59); AST 24 U/L (15-37); Alkaline Phosphatase 68 U/L (46-116); Anion Gap 9.9 mmol/L (3-11); BUN 30 mg/dL (7-18); Bilirubin, Total 0.79 mg/dL (0.2-1.0); CO2 28.1 mmol/L (21.0-32.0); CREATININE 1.5 mg/dL (0.55-1.02); Calcium 9.7 mg/dL (8.5-10.1); Chloride 99 mmol/L (98-107); Estimated GFR 36.57 (mL/min/1.73m2); Glucose 92 mg/dL (74-106); Magnesium 1.6 mg/dL (1.8-2.4); Potassium 3.7 mmol/L (3.5-5.1); Sodium 137 mmol/L (136-145); Total Protein 8.5 g/dL (6.4-8.2)
--- NOTE | 2024-06-23 11:58 | W.PM.DS.N ---
Date of service: 06/23/24 Time of Service: 07:40 DS: Diagnosis Discharge Diagnosis (1) Atrial flutter by electrocardiogram: Start date: 06/21/24 Status: Acute Asessment and Plan: Patient is atrial flutter on admission was 3-1, is reduced 2-1 and intermittently one-to-one with a controlled heart rate. Patient converted to oral diltiazem after discussion with primary insurance and financial services agent in [place]. Plans will include confirming availability of extended release Cardizem prior to discharge. This is confirmed at the local [facility] that the patient wants to use. I spoke with the pharmacist. Patient will be discharged today. (2) History of stent insertion of renal artery: Status: Acute Asessment and Plan: Patient had stent placement of renal artery in November 2023. It is for this reason as well as the patient's previous cardiac stents that patient has been placed on Plavix and aspirin. Discussed plans with primary cardiology service in [facility] and they requested the patient remain on Plavix and aspirin. (3) Chronic anticoagulation: Status: Acute Asessment and Plan: Plavix and aspirin per primary service. Patient will continue. This is discussed in detail with the patient. She had questions regarding the use of Eliquis this morning. It is explained to her that her cardiology service would like her to continue the Plavix and aspirin. (4) Hx of heart artery stent: Asessment and Plan: Continues on anticoagulation (5) CKD stage 3b, GFR 30-44 ml/min: Asessment and Plan: Stable during this hospitalization (6) Peripheral vascular disease: Status: Chronic Asessment and Plan: Stable at this time with no acute issues Deferred to patient's local care in [place]. (7) S/P ablation of atrial fibrillation: Asessment and Plan: Stable at this time. Patient had flutter not atrial fibrillation. (8) S/P spinal surgery: Asessment and Plan: Noncontributory to this hospitalization. Patient did not complain of significant low back pain. Discharge Plan Disposition Patient Disposition: Home Condition: Good Discharge Details Reason For Visit: atrial fibrillation with RVR Admit Date/Time: 06/21/24 16:00 Admit Provider: Jagdish Shirley Attending Provider: Jagdish Shirley Primary Care Provider: Marleen,Local Hospital Course Hospital Course: Patient was admitted to the hospital after discovering that her heart rate was elevated by means of her Fitbit. She had no perception of palpitations. She was not lightheaded. She called her primary insurance and financial services agent in [facility] open (she is visiting her daughter and grandchildren here locally) and was instructed to present to the local hospital emergency department which she did. She was found to be in 3-1 and 2-1 flutter. She was started on diltiazem drip and admitted to the intensive care unit for continued care. Troponins were not elevated. TSH, free T4 and free T3 were all normal. Her creatinine was 1.3-1.5 during her hospital stay. She was switched from diltiazem drip to oral diltiazem extended release. The hospital preparation is CAD. She prefers to use [facility] at the time of discharge. It was confirmed with the local [facility] in [facility], which remains open for prescription filling through drive-through access, that they do have Cardizem extended release in stock but not the CD preparation. I have personally called the patient's primary cardiology office and while her insurance and financial services agent was not available, I spoke to his Allied health practitioner who was very helpful. After discharge, she and her are planning on returning by car to the [facility] and she is already called to schedule follow-up appointment with her insurance and financial services agent. Home Meds and New Rx's Prescriptions: New diltiazem HCl [Cardizem LA] 240 mg tablet extended release 24 hr 240 mg PO QAM MDD 240 Qty: 30 0RF Continued ezetimibe 10 mg tablet 10 mg PO DAILY clopidogrel 75 mg tablet 75 mg PO DAILY chlorthalidone 25 mg tablet 25 mg PO DAILY rabeprazole 20 mg tablet,delayed release (DR/EC) 20 mg PO DAILY Patient Comments: Pt takes this med daily at night. budesonide 3 mg capsule,delayed,extend.release 3 mg PO DAILY red yeast rice 600 mg tablet 600 mg PO BID Rx Instructions: give with meal/snack calcium 167 mg capsule 167 mg PO DAILY multivitamin Tablet 1 tab PO DAILY aspirin 81 mg capsule 81 mg PO DAILY magnesium sulfate 100 mg capsule 400 mg PO HS [id number] Patient Comments: w/ Turmeric, 3600mg per serving potassium chloride 10 mEq tablet extended release 20 meq PO BID lisinopril 10 mg tablet 5 mg PO DAILY Patient Comments: TAKE ONE-HALF TABLET BY MOUTH DAILY Discharge Instructions Additional Instructions: Please follow-up with your primary insurance and financial services agent within 6 days after discharge. Please continue to monitor your heart rate utilizing your Fitbit. You may need to seek local care on your trip back to [place] but we do not expect that you will have any issues during your trip returning to your home. Care Plan Goals: Continue to rate control and presentation to her primary cardiology service when she arrives home. Referrals: No,Local [Primary Care Provider] - (Please call PCP in [place] to schedule follow-up appointment to be within 7-10 days of discharge from [facility] ICU. Please call your primary insurance and financial services agent's office to schedule a follow-up appointment within 6 days of discharge.) Activity:: Activity as Tolerated Equipment/Supplies:: No Equipment Needed Diet:: As Tolerated Discharge Orders Discharge Orders: Discharge Order (Routine); Ordered 06/23/24 Ordered By: Corona Kohler DS: Summary Time Spent with Patient providing and/or coordinating discharge services: Greater than 30 minutes Status at Discharge Functional status at discharge: independent ambulation Overall status at discharge: patient is back to baseline Mental Status: mental status grossly normal Speech and Movement: speech and movement normal Mood: congruent mood Affect: normal affect Quality:SDOH Health Related Social Needs: No Data to Display Exam Narrative Exam Narrative: Patient is alert and oriented x 3 and in no acute distress. Exam essentially unchanged since yesterday. Seen in the intensive care unit. Sitting up in bedside chair. Alert and very comfortable. Diltiazem drip stopped last night. HEENT: Neck supple, Conjunctiva non-injected, sclera non-icteric, Pupils equal and reactive to light symmetrically, no JVD, no A waves. No thyromegaly. No carotid bruit CHEST: Bilaterally symmetrical with inspiration and expiration. No use of accessory muscles of respiration. No nasal flaring. LUNGS: Clear to auscultation bilaterally, no rales, rhonchi or wheeze, no pleural friction rub, no post-tussive crackles COR: RRR without murmur, normal S1, S2, no rub or jeffrey ABDOMEN: Soft, non tender diffusely, normally active bowel sounds diffusely, No hepatosplenomegaly, No abdominal bruit, no masses, no tenderness on deep abdominal palpation. G/U: deferred Rectal: deferred MUSCULOSKELETAL: Bilaterally symmetrical, no muscle belly tenderness or mass DERMIS: Skin warm and dry, no ulcers or rashes, EXTREMITIES: No cyanosis, clubbing or edema, no gross deformities of the large or small joints of the upper or lower extremities. NEUROLOGICAL: Cranial nerves intact II-XII without notable deficit, No peripheral neurosensory or motor deficits noted. LYMPH: No anterior or posterior cervical, no supraclavicular, No axillary, no epitrochlear or femoral lymphadenopathy. Psych Mental Status: mental status grossly normal Speech and Movement: speech and movement normal Mood: congruent mood Affect: normal affect DS: Data Vitals/I&O Vitals and I&O: Vital Signs Temperature 36.4 C L 06/23/24 11:44 Temperature Source Temporal Artery Scan 06/23/24 11:44 Pulse 84 06/23/24 11:44 Pulse 105 H 06/23/24 10:01 Respiratory Rate 16 06/23/24 11:44 Respiratory Effort Normal 06/21/24 17:10 Respiratory Depth Normal 06/21/24 17:10 Respiratory Pattern Normal 06/21/24 17:10 Blood Pressure 122/70 06/23/24 11:44 Blood Pressure Mean 88 06/23/24 10:01 Pulse Oximetry 98 06/23/24 11:44 Oxygen Delivery Method Room Air 06/23/24 11:44 Oxygen Flow Rate 0 06/23/24 11:44 Pain Level 0 06/22/24 16:00 Intake & Output 06/22/24 06/22/24 06/23/24 11:59 23:59 11:59 Intake Total 760 / 1115.625 355.625 / 1115.625 370 / 370 Output Total 1825 / 3075 1250 / 3075 1550 / 1550 Balance -1065 / -1959.375 -894.375 / -1959.375 -1180 / -1180 Weight 96.9 kg 95 kg Intake: IV 115.625 / 115.625 Oral 760 / 1000 240 / 1000 360 / 360 Output: Urine 1825 / 3075 1250 / 3075 1550 / 1550 Other: Urine Color Yellow Yellow Yellow Urine Appearance Clear Clear Clear Urine Odor Normal Normal Normal Stool Size Small Stool Characteristics Formed Brown Voiding Methods Bedside Commode Bedside Commode Bedside Commode Data Completed and Pending Labs on day of discharge: Labs from last 24 hours 06/23/24 06/23/24 06/22/24 10:20 09:03 12:38 WBC 8.95 RBC 5.30 H Hgb 14.5 Hct 44.4 MCV 84 MCH 27.4 MCHC 32.7 RDW 14.2 Plt Count 247 MPV 9.8 Immature Gran % 0.3 Neutrophils % 68.5 Lymphocytes % 21.3 Monocytes % 7.0 Eosinophils % 2.5 Basophils % 0.4 Nucleated RBC % 0.0 Absolute Neutrophils 6.12 Absolute Lymphocytes 1.91 Absolute Monocytes 0.63 Absolute Eosinophils 0.22 Absolute Basophils 0.04 Sodium 137 Potassium 3.7 Chloride 99 Carbon Dioxide 28.1 Anion Gap 9.9 BUN 30 H Creatinine 1.5 H Est GFR (CKD-EPI 2020) 36.57 Glucose 92 Calcium 9.7 Magnesium 1.6 L Total Bilirubin 0.79 AST 24 ALT 27 Alkaline Phosphatase 68 Total Protein 8.5 H Albumin 4.0 TSH 0.49 Free T4 1.22 Free T3 pg/mL 3.7 06/22/24 12:38 WBC RBC Hgb Hct MCV MCH MCHC RDW Plt Count MPV Immature Gran % Neutrophils % Lymphocytes % Monocytes % Eosinophils % Basophils % Nucleated RBC % Absolute Neutrophils Absolute Lymphocytes Absolute Monocytes Absolute Eosinophils Absolute Basophils Sodium Potassium Chloride Carbon Dioxide Anion Gap BUN Creatinine Est GFR (CKD-EPI 2020) Glucose Calcium Magnesium Total Bilirubin AST ALT Alkaline Phosphatase Total Protein Albumin TSH Cancelled Free T4 Free T3 pg/mL PFSH All Active Problems (Updated 06/22/24 @ 12:07 by Corona Kohler DO) Chronic anticoagulation (Acute) History of stent insertion of renal artery (Acute) Peripheral vascular disease (Chronic) Atrial flutter by electrocardiogram (Acute) Hypomagnesemia (Acute) Discharge planning issues (Acute) Coronary artery disease (Chronic) Atrial fibrillation with RVR (Acute) Medical History (Updated 06/22/24 @ 12:07 by Corona Kohler DO) CKD stage 3b, GFR 30-44 ml/min Paroxysmal atrial fibrillation Surgical History (Updated 06/21/24 @ 18:11 by Jagdish Shirley) S/P ablation of atrial fibrillation S/P spinal surgery cyst removal with residual mild left leg weakness/numbness Hx of heart artery stent x 3, last in 2019 Family History (Updated 06/21/24 @ 18:12 by Jagdish Raser) Father Heart disease Brother Heart disease 3 brothers with CABG Social History (Updated 06/21/24 @ 18:13 by Jagdish Shirley) Smoking/Tobacco Use Status: Never Smoking risk assessment performed?: Yes Alcohol Intake: never Substance use type: does not use Housing: house Do you feel safe at home: Yes Do you feel safe in your relationship?: Yes Additional Social history: Lives in [place] with John. Visits daughter and CHRIS in [place], she teaches at [employer] Time Spent with Patient Time Spent with Patient: 45-69 minutes Time was spent: preparing to see the patient(eg.review tests), obtaining and/or reviewing separately otained hiistory, ordering medications,tests, procedures, referring, communicating with other health child care centre manager, indepentently interpreting results, counseling the patient and care coordination
--- NOTE | 2024-06-23 12:40 | CMDISCH_ITS ---
Date of service: 06/23/24 Time of Service: 12:40 LACE Index Scoring Tool Questions: Length of Stay (in days): 2 Was the patient admitted via the E.D.?: Yes Comorbidities: Previous M.I. and Liver or Renal Disease E.D. Visits: 1 Answers: Total Score: 11 Risk of Readmission: High Risk Care Management Discharge Plan Reason for Hospitalization: Atrial flutter Discharge Plan: Bharti is discharged home with a new order for diltiazem to control her heart rate. She will pick that up at a local pharmacy. She and her will spend the night in [place] with their daughter, and start the drive home to [place] tomorrow. They plan to take it easy, and her will do all of the driving. Bharti will f/u with her PCP and her chief radiology, and continue per her plan of care. Her discharge summary was sent to her chief radiology via fax at [phone], per her request. Patient/Family Education Needs: Review of discharge instructions, activity, limitations and ask me 3. SDOH Health Related Social Needs: No Data to Display
== END 2024-06-23 12:55 | disposition home or self-care (01) | DRG 310 ==
LOC: ER 17:06 → ICU 17:21
PROVIDERS: Internal Medicine; Admitting Provider Family Medicine; Emergency Provider Emergency Medicine; Visit Provider Family Medicine
DX: I48.92 Unspecified atrial flutter (principal); I25.10 Atherosclerotic heart disease of native coronary artery without angina pectoris; I48.0 Paroxysmal atrial fibrillation; N18.32 Chronic kidney disease, stage 3b; E83.42 Hypomagnesemia; I73.9 Peripheral vascular disease, unspecified; Z79.01 Long term (current) use of anticoagulants; Z95.5 Presence of coronary angioplasty implant and graft; Z95.828 Presence of other vascular implants and grafts; Z79.899 Other long term (current) drug therapy
CPT/HCPCS: 00123; 36415; 80048; 80053; 82805; 93005; 96361; 96365; 96366; 96367; 96375; 96376; 99291; 71045; 83735; 83880; 84439; 84443; 84481; 84484; 85025; 85379; 85610; 85730; 93010; 94640; 99223; 99232; 99239; J3475